=== PATIENT | female | born 1965 | race African-American/Black ===

== ENCOUNTER 2017-03-13 13:42 | Emergency (ER) | payer OTHER ==
[~2017-03-13] VITALS: Ht 157.5 cm; Wt 73.5 kg
[~2017-03-13 13:42] MED LIST: ALBU18HF IH; ATEN-51 PO; BEN50 PO; CETI-240 PO; HYD25 PO; LOSA100T47 PO; ONDA4TAB8 PO; PANT40TA3 PO; PRED20TA PO
[2017-03-13 13:43] VITALS: Ht 157.5 cm; Wt 73.5 kg
[2017-03-13] MEDS ORDERED: SULF1TAB31 PO (14:21)
[2017-03-13] MEDS ORDERED: HYDR26CR PR (14:22)
[2017-03-13] MEDS ORDERED: CEPH-443 PO (14:22)
--- NOTE | 2017-03-13 14:44 | ERD ---
ER Documentation Chief Complaint Date/Time DATE: 03/13/17 TIME: 14:39 Chief Complaint possible abscess on her buttucks HPI Patient is a 51-year-old female with a past medical history of hypertension who presents to the ED with pain and a bump on her left buttock. Denies fever or chills. States that this is been going on since yesterday. Denies pain when she walks. Denies abdominal pain, nausea, vomiting or diarrhea. Denies headache or dizziness. No other complaints. ROS All systems reviewed and are negative except as per history of present illness. Medications Home Meds Active Scripts Hydrocortisone* Rectal (Preparation H* Cream) 1% - 26 Gm Cream.gm., 1 APPLIC PA BID for 7 Days, TUB Prov:GLENIS DOTSON PA-C 03/13/17 Cephalexin* (Keflex*) 500 Mg Capsule, 500 MG PO QID for 7 Days, CAP Prov:GLENIS DOTSON-C 03/13/17 Sulfamethoxazole/Trimethoprim* (Bactrim Ds* Tablet) 1 Each Tablet, 1 TAB PO BID for 7 Days, #14 TAB Prov:GLENIS DOTSON PA-C 03/13/17 Prednisone* (Prednisone*) 20 Mg Tab, 60 MG PO DAILY for 3 Days, TAB Prov:HALEY NAVARRO NP 02/06/17 Diphenhydramine Hcl* (Benadryl*) 50 Mg Cap, 50 MG PO Q6H Y for ITCHING/RASH, # 30 CAP Prov:HALEY NAVARRO NP 02/06/17 Ondansetron Hcl* (Zofran*) 4 Mg Tablet, 4 MG PO Q6H for NAUSEA AND/OR VOMITING, #10 TAB Prov:GABBY ENNIS MD 12/18/15 Pantoprazole* (Protonix*) 40 Mg Tablet.dr, 40 MG PO DAILY, #10 TAB Prov:GABBY ENNIS MD 12/18/15 Reported Medications Cetirizine Hcl* (Cetirizine Hcl*) 10 Mg Tablet, 10 MG PO DAILY, #30 TAB 12/18/15 Losartan Potassium* (Cozaar*) 100 Mg Tablet, 100 MG PO DAILY, TAB 06/30/14 Hydrochlorothiazide* (Hydrochlorothiazide*) 25 Mg Tab, 25 MG PO DAILY, TAB 06/30/14 Atenolol* (Atenolol*) 25 Mg Tablet, 25 MG PO DAILY, TAB 06/30/14 Albuterol Sulfate* (Ventolin HFA*) 18 Gm Hfa.aer.ad, 2 PUFF IH Q4-6HOURS Y for WHEEZING AND RESP DISTRESS, EA 06/30/14 Allergies Allergies: Coded Allergies: No Known Allergy (Unverified , 12/18/15) PMhx/Soc History of Surgery: No Anesthesia Reaction: No Hx Neurological Disorder: No Hx Respiratory Disorders: Yes (ASTHMA) Hx Cardiac Disorders: Yes (HTN) Hx Psychiatric Problems: No Hx Miscellaneous Medical Probl: No Hx Alcohol Use: Yes (socially) Hx Substance Use: No Hx Tobacco Use: No Physical Exam Vitals Vital Signs Date Time Temp Pulse Resp B/P Pulse Ox O2 Delivery O2 Flow Rate FiO2 03/13/17 13:43 98.6 63 18 137/68 100 Physical Exam GENERAL: Well-developed, well-nourished female. Appears in no acute distress. HEAD: Normocephalic, atraumatic. EYES: Pupils are equally reactive bilaterally. EOMs grossly intact. No conjunctival erythema. ENT: Moist mucous membranes. No uvula deviation. No kissing tonsils. No exudates. NECK: Supple. No lymphadenopathy or thyromegaly. No meningismus. negative kernig. negative brudinski. LUNG: Clear to auscultation bilaterally. No rhonchi, wheezing, rales or coarse breath sounds. HEART: Regular rate and rhythm. No murmurs, rubs or gallops. BACK: No midline tenderness. 4 cm x 4 cm area of induration with no fluctuance. No warmth. Tenderness to touch Extremities: Equal pulses bilaterally. No peripheral clubbing, cyanosis or edema. No unilateral leg swelling. NEUROLOGIC: Alert and oriented. Moving all four extremities. 5/5 strength in all extremities. Normal speech. Steady gait. SKIN: Normal color. Warm and dry. No rashes or lesions. Capillary refill < 2 seconds Procedures/MDM ER COURSE: I kept the patient and/or family informed of laboratory and diagnostic imaging results throughout the emergency room course. MEDICAL DECISION MAKING: This is a 51-year-old female who presents with abscess on her left buttock 1 day. Vital signs were reviewed. Patient is afebrile. Patient is not hypoxic. Patient is nontoxic or ill-appearing. Abscess was indurated at this point no incision and drainage was done as there was no fluctuance. Patient was given Bactrim and Keflex and to do warm compresses 3-5 times a day. Patient to return in 2 days for check or earlier if symptoms worsen. Low suspicion for necrotizing fasciitis, SJS, toxic epidermal necrolysis, Kawasaki, erythema multiforme, gangrene, scarlet fever, meningococcemia, sepsis, anaphylaxis, sepsis, deep space infection, or foreign body. Patient also has hemorrhoids. Low suspicion for thrombosed hemorrhoid, prema-rectal or perianal abscess DISCHARGE: At this time, patient is stable for discharge and outpatient management with no new complaints during the ER course. Patient was sent home with Bactrim and Keflex and Anusol cream. Patient will be discharged home with instructions to recheck for new or worsening symptoms such as fever, nausea, weakness, LOC and to follow up with primary care in the next 1-2 days. Patient was advised to return to the ER for any new or worsening symptoms. Plan was discussed and patient and/or family understands and agrees. Home instructions were given. Departure Diagnosis: Primary Impression: Abscess Condition: Stable Patient Instructions: Abscess, Antiobiotic Treatment Only, Hemorrhoids Referrals: [facility] YOU HAVE RECEIVED A MEDICAL SCREENING EXAM AND THE RESULTS INDICATE THAT YOU DO NOT HAVE A CONDITION THAT REQUIRES URGENT TREATMENT IN THE EMERGENCY DEPARTMENT. FURTHER EVALUATION AND TREATMENT OF YOUR CONDITION CAN WAIT UNTIL YOU ARE SEEN IN YOUR DOCTORS OFFICE WITHIN THE NEXT 1-2 DAYS. IT IS YOUR RESPONSIBILITY TO MAKE AN APPOINTMENT FOR FOLOW-UP CARE. IF YOU HAVE A PRIMARY DOCTOR --you should call your primary doctor and schedule an appointment IF YOU DO NOT HAVE A PRIMARY DOCTOR YOU CAN CALL OUR PHYSICIAN REFERRAL HOTLINE AT IF YOU CAN NOT AFFORD TO SEE A PHYSICIAN YOU CAN CHOSE FROM THE FOLLOWING [facility] [address] [facility] [address] [facility] [address] [facility] [address] [facility]. [facility] [address] [facility] [facility] [address] Additional Instructions: Call your primary care doctor TOMORROW for an appointment during the next 1-2 days.See the doctor sooner or return here if your condition worsens before your appointment time. GLENIS DOTSON PA-C Mar 13, 2017 14:44
== END 2017-03-13 15:31 | disposition home or self-care (01) ==
LOC: FTE 13:42
DX: L02.31 Cutaneous abscess of buttock (principal); I10 Essential (primary) hypertension; J45.909 Unspecified asthma, uncomplicated
CPT/HCPCS: 99284

== ENCOUNTER 2017-03-16 08:41 | Emergency (ER) | payer OTHER ==
[~2017-03-16] VITALS: Wt 73.5 kg
[~2017-03-16 08:41] MED LIST changes: +CEPH-443 PO; +HYDR26CR PR; +SULF1TAB31 PO
[2017-03-16] MEDS ORDERED: LIDOCAINE 1% (MDV) 20 ML INJ SC ONE (09:30)
[2017-03-16] MEDS ORDERED: IBUP-1542 PO (09:53)
--- NOTE | 2017-03-16 11:32 | ERD ---
ER Documentation Chief Complaint Date/Time DATE: 03/16/17 TIME: 10:41 Chief Complaint abcess on left buttocks HPI 51-year-old female is complaining of painful abscess on her left buttocks. Patient was seen here 3 days ago for the same, was given oral antibiotics. Patient stated that the pain has gotten worse and it started draining yesterday. Denies fever or chills. ROS All systems reviewed and are negative except as per history of present illness. Medications Home Meds Active Scripts Ibuprofen* (Motrin*) 600 Mg Tab, 600 MG PO Q6H Y for PAIN AND OR ELEVATED TEMP, #30 TAB Prov:HALEY NAVARRO IN [employer] 03/16/17 Hydrocortisone* Rectal (Preparation H* Cream) 1% - 26 Gm Cream.gm., 1 APPLIC OR BID for 7 Days, TUB Prov:GLENIS DOTSON-C 03/13/17 Cephalexin* (Keflex*) 500 Mg Capsule, 500 MG PO QID for 7 Days, CAP Prov:GLENIS DOTSON-C 03/13/17 Sulfamethoxazole/Trimethoprim* (Bactrim Ds* Tablet) 1 Each Tablet, 1 TAB PO BID for 7 Days, #14 TAB Prov:GLENIS DOTSON-C 03/13/17 Prednisone* (Prednisone*) 20 Mg Tab, 60 MG PO DAILY for 3 Days, TAB Prov:HALEY NAVARRO NP 02/06/17 Diphenhydramine Hcl* (Benadryl*) 50 Mg Cap, 50 MG PO Q6H Y for ITCHING/RASH, # 30 CAP Prov:HALEY NAVARRO NP 02/06/17 Ondansetron Hcl* (Zofran*) 4 Mg Tablet, 4 MG PO Q6H for NAUSEA AND/OR VOMITING, #10 TAB Prov:GABBY ENNIS MD 12/18/15 Pantoprazole* (Protonix*) 40 Mg Tablet.dr, 40 MG PO DAILY, #10 TAB Prov:GABBY ENNIS MD 12/18/15 Reported Medications Cetirizine Hcl* (Cetirizine Hcl*) 10 Mg Tablet, 10 MG PO DAILY, #30 TAB 12/18/15 Losartan Potassium* (Cozaar*) 100 Mg Tablet, 100 MG PO DAILY, TAB 06/30/14 Hydrochlorothiazide* (Hydrochlorothiazide*) 25 Mg Tab, 25 MG PO DAILY, TAB 06/30/14 Atenolol* (Atenolol*) 25 Mg Tablet, 25 MG PO DAILY, TAB 06/30/14 Albuterol Sulfate* (Ventolin HFA*) 18 Gm Hfa.aer.ad, 2 PUFF IH Q4-6HOURS Y for WHEEZING AND RESP DISTRESS, EA 06/30/14 Allergies Allergies: Coded Allergies: No Known Allergy (Unverified , 12/18/15) PMhx/Soc Medical and Surgical Hx: pt denies Medical Hx History of Surgery: No Anesthesia Reaction: No Hx Neurological Disorder: No Hx Respiratory Disorders: No Hx Cardiac Disorders: No Hx Psychiatric Problems: No Hx Miscellaneous Medical Probl: No Hx Alcohol Use: No Hx Substance Use: No Hx Tobacco Use: No Smoking Status: Never smoker Physical Exam Vitals Vital Signs Date Time Temp Pulse Resp B/P Pulse Ox O2 Delivery O2 Flow Rate FiO2 03/16/17 08:45 97.9 68 17 132/61 98 Physical Exam General: Well-developed, well-nourished, conscious and coherent, in no distress Skin: Warm and dry without rash, good texture and turgor. A 2 cm erythematous and indurated area noted on the left buttock, tender to palpation, with mild drainage from the center Head: Normocephalic without evidence of trauma Eyes: Sclera and conjunctivae normal; pupils equal, round, and reactive to light; extraocular movements are intact Neck: Supple without meningismus or adenopathy. Carotids are equal. Trachea midline. No bruits or JVD Chest: Normal AP diameter. Good expansion without retractions. Nontender. Lungs are clear to auscultate bilaterally with good tidal volume Heart: Regular rate and rhythm. No murmur, rub, or gallops heard Abdomen: Soft and nontender without masses, guarding, or rebound. Bowel sounds are active. No hepatosplenomegaly Back: Without spinal or CVA tenderness Extremities: Full range of motion. Good strength bilaterally. No clubbing, cyanosis, or edema. Peripheral pulses are intact. Sensation intact Neuro: Alert and oriented 4, GCS 15. Cranial nerves grossly intact. Motor and sensory exams nonfocal. Moves all extremities. Speech clear. Gait normal Results 24 hrs Current Medications Medications (Trade) Dose Ordered Sig/Buzz Route PRN Reason Start Time Stop Time Status Last Admin Dose Admin Lidocaine (Xylocaine 1% (Mdv) 20 ml) 20 ml ONCE ONCE SC 03/16/17 09:30 03/16/17 09:31 DC Procedures/MDM Procedure note: Incision and Drainage Verbal consent obtained for incision and drainage of patient's abscess. The area was prepped with Betadine. Lidocaine 1% was infiltrated for local anesthesia. After appropriate anesthesia, incision was made using #11 blade. Moderate amount of purulent discharge was drained from the abscess. The abscess was probed for loculation. Iodoform 1/4" packing tape was inserted into the abscess. The wound was then cleaned and dressed. Patient tolerated procedure well. Patient is advised to continue to take antibiotics until finished, and return to ED in 2 days for wound check and dressing change. I doubt necrotizing fasciitis. Departure Diagnosis: Primary Impression: Abscess Condition: Good Patient Instructions: Abscess, Incision And Drainage Referrals: [facility] (PCP) Additional Instructions: Return to this facility in 2 DAYS for a follow-up exam.Return sooner if your condition worsens. HALEY NAVARRO NP Mar 16, 2017 10:52
== END 2017-03-16 10:09 | disposition home or self-care (01) ==
LOC: FTE 08:41
DX: L02.31 Cutaneous abscess of buttock (principal); R40.2412 Glasgow coma scale score 13-15, at arrival to emergency department
CPT/HCPCS: 10061; Z7610

== ENCOUNTER 2017-03-18 08:56 | Emergency (ER) | payer OTHER ==
[~2017-03-18] VITALS: Ht 157.5 cm; Wt 72.5 kg
[~2017-03-18 08:56] MED LIST changes: +IBUP-1542 PO
[2017-03-18 08:58] VITALS: Ht 157.5 cm; Wt 72.5 kg
[2017-03-18] MEDS ORDERED: HYDR-906 PO (10:01)
--- NOTE | 2017-03-18 10:08 | ERD ---
ER Documentation Chief Complaint Date/Time DATE: 03/18/17 TIME: 10:05 Chief Complaint 2 DAY WOUND, ABSCESS DRAINED PACKING IN PLACE HPI This a 51-year-old female who presents the emergency department today for a wound check of an abscess that she had drained a couple of days ago on her left buttock. Patient states she has had some nausea. Denies any fevers or chills. States she is taking her antibiotics as prescribed. States that she has had some increased pain at night. States she is taking Motrin for pain. ROS All systems reviewed and are negative except as per history of present illness. Medications Home Meds Active Scripts Hydrocodone/Acetaminophen (Mason 5-325 Tablet) 1 Each Tablet, 1 TAB PO Q6H Y for PAIN, #10 TAB Prov:HIRAL MUHAMMAD PA-C 03/18/17 Ibuprofen* (Motrin*) 600 Mg Tab, 600 MG PO Q6H Y for PAIN AND OR ELEVATED TEMP, #30 TAB Prov:HALEY NAVARRO NP 03/16/17 Hydrocortisone* Rectal (Preparation H* Cream) 1% - 26 Gm Cream.gm., 1 APPLIC PA BID for 7 Days, TUB Prov:GLENIS DOTSON PA-C 03/13/17 Cephalexin* (Keflex*) 500 Mg Capsule, 500 MG PO QID for 7 Days, CAP Prov:GLENIS DOTSON PA-C 03/13/17 Sulfamethoxazole/Trimethoprim* (Bactrim Ds* Tablet) 1 Each Tablet, 1 TAB PO BID for 7 Days, #14 TAB Prov:GLENIS DOTSON PA-C 03/13/17 Prednisone* (Prednisone*) 20 Mg Tab, 60 MG PO DAILY for 3 Days, TAB Prov:HALEY NAVARRO NP 02/06/17 Diphenhydramine Hcl* (Benadryl*) 50 Mg Cap, 50 MG PO Q6H Y for ITCHING/RASH, # 30 CAP Prov:HALEY NAVARRO NP 02/06/17 Ondansetron Hcl* (Zofran*) 4 Mg Tablet, 4 MG PO Q6H for NAUSEA AND/OR VOMITING, #10 TAB Prov:GABBY ENNIS MD 12/18/15 Pantoprazole* (Protonix*) 40 Mg Tablet.dr, 40 MG PO DAILY, #10 TAB Prov:GABBY ENNIS MD 12/18/15 Reported Medications Cetirizine Hcl* (Cetirizine Hcl*) 10 Mg Tablet, 10 MG PO DAILY, #30 TAB 12/18/15 Losartan Potassium* (Cozaar*) 100 Mg Tablet, 100 MG PO DAILY, TAB 06/30/14 Hydrochlorothiazide* (Hydrochlorothiazide*) 25 Mg Tab, 25 MG PO DAILY, TAB 06/30/14 Atenolol* (Atenolol*) 25 Mg Tablet, 25 MG PO DAILY, TAB 06/30/14 Albuterol Sulfate* (Ventolin HFA*) 18 Gm Hfa.aer.ad, 2 PUFF IH Q4-6HOURS Y for WHEEZING AND RESP DISTRESS, EA 06/30/14 Allergies Allergies: Coded Allergies: No Known Allergy (Unverified , 03/18/17) PMhx/Soc History of Surgery: No Anesthesia Reaction: No Hx Neurological Disorder: No Hx Respiratory Disorders: No Hx Cardiac Disorders: No Hx Psychiatric Problems: No Hx Miscellaneous Medical Probl: No Hx Alcohol Use: No Hx Substance Use: No Hx Tobacco Use: No Physical Exam Vitals Vital Signs Date Time Temp Pulse Resp B/P Pulse Ox O2 Delivery O2 Flow Rate FiO2 03/18/17 08:58 97.9 53 18 146/70 97 Physical Exam Const: No acute distress Head: Atraumatic Eyes: Normal Conjunctiva ENT: Normal External Ears, Nose and Mouth. Neck: Full range of motion..~ No meningismus. Resp: Clear to auscultation bilaterally Cardio: Regular rate and rhythm, no murmurs Skin: Evidence of drained abscess left buttock. No erythema or warmth. No purulent drainage. No evidence of wound packing. Neur: Awake and alert Psych: Normal Mood and Affect Procedures/MDM This 51-year-old female presents the emergency department today for a wound check of an abscess that she had drained 2 days ago. Upon review of patient's medical records she did have some packing placed however there is no evidence of packing at this time and my suspicion is that the packing has fallen out as patient was doing dressing changes on her own. She is afebrile and otherwise well-appearing. There is no purulent drainage. Wound appears to be healing well. Low suspicion for sepsis, deep space tracking infection, severe cellulitis. Patient was instructed to continue taking her antibiotics as prescribed. I did give her a short course of Mason for home as she had increased pain at night. She was instructed to stay out of the water in her swimming class and keep the wound clean and dry. Patient understood. Wound was redressed here in the emergency department. At this time the patient is stable for discharge and outpatient management. Patient should follow up with their PCP in the next 1-2 days. They may return to the emergency department sooner for any persistent or worsening of symptoms. Patient understood and agreed with the plan. Departure Diagnosis: Primary Impression: Encounter for wound re-check Condition: Fair Patient Instructions: Wound Care Referrals: [facility] (PCP) Additional Instructions: Call your primary care doctor TOMORROW for an appointment during the next 1-2 days.See the doctor sooner or return here if your condition worsens before your appointment time. Continue taking antibiotics as prescribed Take Mason for severe pain otherwise take Naprosyn or Tylenol or Motrin Keep wound clean HIRAL MUHAMMAD PA-C Mar 18, 2017 10:08
== END 2017-03-18 10:30 | disposition home or self-care (01) ==
LOC: E/R 08:56
DX: Z48.01 Encounter for change or removal of surgical wound dressing (principal)
CPT/HCPCS: 99283

== ENCOUNTER 2017-10-26 17:43 | Emergency (ER) | END 2017-10-26 23:46 | disposition home or self-care (01) ==

== ENCOUNTER 2017-10-28 07:59 | Emergency (ER) | END 2017-10-28 09:23 | disposition home or self-care (01) ==

== ENCOUNTER 2017-11-30 19:04 | Emergency (ER) | END 2017-11-30 21:12 | disposition home or self-care (01) ==

== ENCOUNTER 2017-12-04 10:17 | Emergency (ER) | END 2017-12-04 12:38 | disposition home or self-care (01) ==

== ENCOUNTER 2018-10-06 13:50 | Emergency (ER) | payer OTHER ==
[~2018-10-06] VITALS: Ht 165.1 cm; Wt 76.4 kg
[~2018-10-06 13:50] MED LIST changes: -CETI-240 PO; +CETI10TA19 PO; +FLUC150T PO; -HYD25 PO; +HYDR-4011 PO; +HYDR25TA6 PO; +IBUP-1561 PO; +IBUP800T48 PO; +LOSA100T3 PO; -LOSA100T47 PO; +MELO15TA30 PO; +MUPI22OI2 TOP
[2018-10-06 14:03] VITALS: Ht 165.1 cm; Wt 76.4 kg
[2018-10-06] MEDS ORDERED: KETOROLAC 15 MG INJ IV STA (14:41)
--- NOTE | 2018-10-06 14:45 | ERD ---
ER Documentation Chief Complaint Chief Complaint rt hand pain seen here before, medication not working HPI 52-year-old female, right-handed, returns to the emergency department 24 hours after being seen for right pain. The patient is complaining of worsening of symptoms, at this time, associated with edema, erythema and warmth over the dorsum of the right hand. She was discharged on cephalexin and ibuprofen, she refers good compliance with medications without improvement of the symptoms. Denies fevers, no chills, no rashes, no history of previous episodes. ROS All systems reviewed and are negative except as per history of present illness. Medications Home Meds Active Scripts Hydrocodone/Acetaminophen ([place] 5-325 Tablet) 1 Each Tablet, 1 TAB PO QHS PRN for PAIN, #7 TAB Prov:CHEIKH HOFFMANN MD 10/06/18 Prednisone* (Prednisone*) 20 Mg Tab, 40 MG PO DAILY for 4 Days, TAB Prov:CHEIKH HOFFMANN MD 10/06/18 Sulfamethoxazole/Trimethoprim* (Bactrim Ds* Tablet) 1 Each Tablet, 1 TAB PO BID, #14 TAB Prov:CHEIKH HOFFMANN MD 10/06/18 Ibuprofen* (Motrin*) 800 Mg Tab, 800 MG PO Q6H PRN for PAIN AND OR ELEVATED TEMP, #30 TAB Prov:JASKARAN MELCHOR 10/05/18 Meloxicam* (Mobic*) 15 Mg Tablet, 15 MG PO DAILY PRN for PAIN LEVEL 1-5, #30 TAB Prov:JASKARAN MELCHOR 10/05/18 Cephalexin* (Keflex*) 500 Mg Capsule, 500 MG PO TID for 7 Days, CAP Prov:HUNTERILAJASKARAN MENDIOLA 10/05/18 Hydrocodone/Acetaminophen ([place] 5-325 Tablet) 1 Each Tablet, 1 TAB PO Q6H PRN for PAIN, #7 TAB Prov:SHELBY GRACE PA-C 12/04/17 Fluconazole* (Diflucan*) 150 Mg Tablet, 150 MG PO ONCE, #1 TAB Prov:CHEIKH HOFFMANN MD 11/30/17 Sulfamethoxazole/Trimethoprim* (Bactrim Ds* Tablet) 1 Each Tablet, 1 TAB PO BID, #14 TAB Prov:CHEIKH HOFFMANN MD 11/30/17 Mupirocin* (Bactroban*) 2% -22 Gram Oint...g., 1 APPLIC TOP BID for 7 Days, EA Prov:CHEIKH HOFFMANN MD 11/30/17 Hydrocodone/Acetaminophen ([place] 5-325 Tablet) 1 Each Tablet, 1 TAB PO Q6H PRN for PAIN, #12 TAB Prov:CHEIKH HOFFMANN MD 10/26/17 Ibuprofen* (Motrin*) 400 Mg Tab, 400 MG PO Q8 for 4 Days, #12 TAB Prov:CHEIKH HOFFMANN MD 10/26/17 Cephalexin* (Keflex*) 500 Mg Capsule, 500 MG PO BID for 7 Days, CAP Prov:CHEIKH HOFFMANN MD 10/26/17 Sulfamethoxazole/Trimethoprim* (Bactrim Ds* Tablet) 1 Each Tablet, 1 TAB PO BID, #14 TAB Prov:CHEIKH HOFFMANN MD 10/26/17 Hydrocodone/Acetaminophen ([place] 5-325 Tablet) 1 Each Tablet, 1 TAB PO Q6H PRN for PAIN, #10 TAB Prov:HIRAL MUHAMMAD-C 03/18/17 Ibuprofen* (Motrin*) 600 Mg Tab, 600 MG PO Q6H PRN for PAIN AND OR ELEVATED TEMP, #30 TAB Prov:HALEY NAVARRO [employer] 03/16/17 Hydrocortisone* Rectal (Preparation H* Cream) 1% - 26 Gm Cream.gm., 1 APPLIC [place] BID for 7 Days, TUB Prov:GLENIS DOTSON-C 03/13/17 Cephalexin* (Keflex*) 500 Mg Capsule, 500 MG PO QID for 7 Days, CAP Prov:HYUNTARIGLENIS LANDEROS PA-C 03/13/17 Sulfamethoxazole/Trimethoprim* (Bactrim Ds* Tablet) 1 Each Tablet, 1 TAB PO BID for 7 Days, #14 TAB Prov:GLENIS DOTSON PA-C 03/13/17 Prednisone* (Prednisone*) 20 Mg Tab, 60 MG PO DAILY for 3 Days, TAB Prov:HALEY NAVARRO. [employer] 02/06/17 Diphenhydramine Hcl* (Benadryl*) 50 Mg Cap, 50 MG PO Q6H PRN for ITCHING/RASH, #30 CAP Prov:HALEY NAVARRO NP 02/06/17 Ondansetron Hcl* (Zofran*) 4 Mg Tablet, 4 MG PO Q6H for NAUSEA AND/OR VOMITING, #10 TAB Prov:GABBY ENNIS MD 12/18/15 Pantoprazole* (Protonix*) 40 Mg Tablet.dr, 40 MG PO DAILY, #10 TAB Prov:GABBY ENNIS MD 12/18/15 Reported Medications Cetirizine Hcl* (Cetirizine Hcl*) 10 Mg Tablet, 10 MG PO DAILY, #30 TAB 12/18/15 Losartan Potassium* (Cozaar*) 100 Mg Tablet, 100 MG PO DAILY, TAB 06/30/14 Hydrochlorothiazide* (Hydrochlorothiazide*) 25 Mg Tab, 25 MG PO DAILY, TAB 06/30/14 Atenolol* (Atenolol*) 25 Mg Tablet, 25 MG PO DAILY, TAB 06/30/14 Albuterol Sulfate* (Ventolin HFA*) 18 Gm Hfa.aer.ad, 2 PUFF IH Q4-6HOURS PRN for WHEEZING AND RESP DISTRESS, EA 06/30/14 Discontinued Scripts Ibuprofen* (Motrin*) 800 Mg Tab, 800 MG PO Q6H PRN for PAIN AND OR ELEVATED TEMP, #30 TAB Prov:CHERRIMARLENAMARIGUILLERMO Avina 10/05/18 Allergies Allergies: Coded Allergies: No Known Allergy (Unverified , 03/18/17) PMhx/Soc History of Surgery: No Anesthesia Reaction: No Hx Neurological Disorder: No Hx Respiratory Disorders: No Hx Cardiac Disorders: No Hx Psychiatric Problems: No Hx Miscellaneous Medical Probl: No Hx Alcohol Use: No Hx Substance Use: No Hx Tobacco Use: No Smoking Status: Never smoker Physical Exam Vitals Vital Signs Date Temp Pulse Resp B/P (MAP) Pulse Ox O2 O2 Flow FiO2 Time Delivery Rate 10/06/18 99.1 66 18 139/62 98 Room Air 18:16 (87) 10/06/18 98.3 82 18 185/76 97 14:03 (112) Physical Exam Const: No acute distress Head: Atraumatic Eyes: Normal Conjunctiva ENT: Normal External Ears, Nose and Mouth. Neck: Full range of motion. No meningismus. Resp: Clear to auscultation bilaterally Cardio: Regular rate and rhythm, no murmurs Abd: Soft, non tender, non distended. Normal bowel sounds Skin: No petechiae or rashes Back: No midline or flank tenderness Ext: Right hand: 6 x 6 cm well-defined area of edema, erythema and tenderness over the dorsum of the hand, predominantly at the first and second metacarpal areas. Distal neurovascular exam intact. Neur: Awake and alert Psych: Normal Mood and Affect Result Diagram: 10/06/18 1458 10/06/18 1457 Results 24 hrs Laboratory Tests Test 10/06/18 14:55 10/06/18 14:57 10/06/18 14:58 Bedside Urine pH (LAB) 6.0 Bedside Urine Protein (LAB) Negative Bedside Urine Glucose (UA) Negative Bedside Urine Ketones (LAB) Negative Bedside Urine Blood Trace-intact Bedside Urine Nitrite (LAB) Negative Bedside Urine Leukocyte Esterase 1+ (L Sodium Level 139 mmol/L Potassium Level 3.9 mmol/L Chloride Level 100 mmol/L Carbon Dioxide Level 30 mmol/L Anion Gap 9 Blood Urea Nitrogen 12 mg/dl Creatinine 0.65 mg/dl Est Glomerular Filtrat Rate mL/min > 60 mL/min Glucose Level 109 mg/dl Calcium Level 10.4 mg/dl POC Beta HCG, Qualitative NEGATIVE White Blood Count 8.3 10^3/ul Red Blood Count 5.12 10^6/ul Hemoglobin 13.7 g/dl Hematocrit 42.0 % Mean Corpuscular Volume 82.0 fl Mean Corpuscular Hemoglobin 26.8 pg Mean Corpuscular 32.6 g/dl Hemoglobin Concent Red Cell Distribution Width 13.6 % Platelet Count 199 10^3/UL Mean Platelet Volume 11.2 fl Immature Granulocytes % 0.100 % Neutrophils % 67.0 % Lymphocytes % 20.6 % Monocytes % 10.1 % Eosinophils % 1.8 % Basophils % 0.4 % Nucleated Red Blood Cells % 0.0 /100WBC Immature Granulocytes # 0.010 10^3/ul Neutrophils # 5.6 10^3/ul Lymphocytes # 1.7 10^3/ul Monocytes # 0.8 10^3/ul Eosinophils # 0.2 10^3/ul Basophils # 0.0 10^3/ul Nucleated Red Blood Cells # 0.0 10^3/ul Current Medications Medications Dose Sig/Buzz Start Time Status Last (Trade) Ordered Route PRN Stop Time Admin Dose Reason Admin Sodium 1,000 ml @ Q1H ONCE 10/06/18 DC 10/06/18 Chloride 1,000 mls/hr IV 15:00 15:04 10/06/18 15:59 Ertapenem 1 100 ml @ ONCE ONCE 10/06/18 DC 10/06/18 gm/ Sodium 200 mls/hr IVPB 15:00 15:03 Chloride 10/06/18 15:29 8 mg ONCE ONCE 10/06/18 DC 10/06/18 Dexamethasone IV 15:00 15:03 (Decadron) 10/06/18 15:01 Ketorolac 15 mg ONCE STAT 10/06/18 DC 10/06/18 Tromethamine IV 14:41 15:04 (Toradol) 10/06/18 14:47 DIAGNOSTIC IMAGING REPORT Patient: AILYN GARCIA : 1965 Age: 52 Sex: F MR #: [id number] DOS: 10/06/18 1441 Ordering MD: CHEIKH HOFFMANN MD Location: [facility] Room/Bed: PROCEDURE: XR Hand. CLINICAL INDICATION: f/u Rt hand cellulitis TECHNIQUE: AP oblique and lateral views of the right hand were obtained. COMPARISON: HAND 10/05/2018; [facility] HAND 09/07/2014 FINDINGS: No acute fracture detected. No dislocation. No erosive changes or periosteal reaction. Mild arthrosis at the thumb base. Interval increase in now moderate soft tissue swelling. IMPRESSION: Increased soft tissue swelling without evidence of fracture or osteomyelitis. RPTAT:AAJJ Physician Merari Date Time Electronically viewed and signed by Physician Merari on 10/06/2018 15:43 RF/ CC: CHEIKH HOFFMANN MD [phone] Procedures/MDM Vital signs stable, differential diagnosis include but not limited to: DVT, superficial thrombosis, cellulitis, erysipelas, shingles, abscess. Low suspicion for acute systemic infectious process. Physical examination and clinical presentation consistent most likely with cellulitis of the right hand without evidence of abscess formation. During the ED course the patient remained stable, no new complaints. The patient received treatment with IV Invanz, steroids and Toradol. Results and clinical impression discussed with the patient who agrees with management. The patient is stable to be treated outpatient and will be discharged home with a Rx for antibiotics, anti-inflammatories and pain medica tions, some side effects of prescribed medications (headache, rash, nausea, vomiting, diarrhea, drowsiness, habituation, bleeding, hypertension, interactions with other medications) were reviewed. The patient was instructed to follow up with the primary care provider in the next 48h. If symptoms persist, worsen or new symptoms develop, then patient should return to the ED immediately. Instructions explained and given directly by me to the patient and relatives with acknowledgment and demonstrated understanding. Disclaimer: Inadvertent spelling and grammatical errors are likely due to EHR/d ictation software use and do not reflect on the overall quality of patient care. Also, please note that the electronic time recorded on this note does not necessarily reflect the actual time of the patient encounter. Departure Diagnosis: Primary Impression: Cellulitis of hand, right Condition: Stable Additional Instructions: Thank you very much for allowing us to participate in your care. Your health and safety is our top priority at [facility]. Call your primary care doctor TOMORROW for an appointment during the next 2-4 days and bring all the information and medications prescribed. Have prescriptions filled and follow precisely the directions on the label. If the symptoms get worse and your provider is unavailable, return to the Emergency Department immediately. CHEIKH HOFFMANN MD Oct 06, 2018 14:45
[2018-10-06] MEDS ORDERED: SOD CHLORIDE 0.9% 1,000 ML IV ONE (15:00)
[2018-10-06] MEDS ORDERED: DEXAMETHASONE 10 MG/ML 1 ML INJ IV ONE (15:00)
[2018-10-06] MEDS ORDERED: ERTAPENEM SODIUM 1 GM in SOD CHLORIDE 0.9% 100 ML IVPB ONE (15:00)
[2018-10-06] MEDS ORDERED: PRED20TA PO (17:52)
[2018-10-06] MEDS ORDERED: SULF1TAB31 PO (17:52)
[2018-10-06] MEDS ORDERED: HYDR-4011 PO (17:53)
[2018-10-06 18:16] VITALS: BP 139/62; PULSE 66; RESP 18
== END 2018-10-06 18:18 | disposition home or self-care (01) ==
LOC: FTE 13:50
DX: L03.113 Cellulitis of right upper limb (principal)
CPT/HCPCS: 73130; 80048; 81003; 81025; 85025; 96374; 96375; J1100; J1335; J1885; Z7502; Z7610

== ENCOUNTER 2018-10-09 09:27 | Emergency (ER) | payer OTHER ==
[~2018-10-09] VITALS: Wt 77.2 kg
--- NOTE | 2018-10-09 10:35 | ERD ---
ER Documentation Chief Complaint Chief Complaint HERE FOR F/U RIGHT HADN SWELLING, HERE ON 52-year-old y/o female, returns to the emergency department for follow-up of the right hand cellulitis. Patient feels better, persist with well localized edema but the erythema, warmth and tenderness have improved, refers good compliance with medications, no side effects. She denies fevers, no chills. ROS All systems reviewed and are negative except as per history of present illness. Medications Home Meds Active Scripts Acetaminophen* (Tylenol*) 325 Mg Tablet, 2 TAB PO Q8 PRN for PAIN AND OR ELEVATED TEMP, #20 TAB Prov:CHEIKH HOFFMANN MD 10/09/18 Ranitidine Hcl* (Zantac*) 150 Mg Tablet, 150 MG PO BID PRN for EPIGASTRIC PAIN, #14 TAB Prov:CHEIKH HOFFMANN MD 10/09/18 Hydrocodone/Acetaminophen ([place] 5-325 Tablet) 1 Each Tablet, 1 TAB PO QHS PRN for PAIN, #7 TAB Prov:CHEIKH HOFFMANN MD 10/06/18 Prednisone* (Prednisone*) 20 Mg Tab, 40 MG PO DAILY for 4 Days, TAB Prov:CHEIKH HOFFMANN MD 10/06/18 Sulfamethoxazole/Trimethoprim* (Bactrim Ds* Tablet) 1 Each Tablet, 1 TAB PO BID, #14 TAB Prov:CHEIKH HOFFMANN MD 10/06/18 Ibuprofen* (Motrin*) 800 Mg Tab, 800 MG PO Q6H PRN for PAIN AND OR ELEVATED TEMP, #30 TAB Prov:JASKARAN MELCHOR 10/05/18 Meloxicam* (Mobic*) 15 Mg Tablet, 15 MG PO DAILY PRN for PAIN LEVEL 1-5, #30 TAB Prov:JASKARAN MELCHOR 10/05/18 Cephalexin* (Keflex*) 500 Mg Capsule, 500 MG PO TID for 7 Days, CAP Prov:JASKARAN MELCHOR 10/05/18 Hydrocodone/Acetaminophen ([place] 5-325 Tablet) 1 Each Tablet, 1 TAB PO Q6H PRN for PAIN, #7 TAB Prov:SHELBY GRACE PA-C 12/04/17 Fluconazole* (Diflucan*) 150 Mg Tablet, 150 MG PO ONCE, #1 TAB Prov:CHEIKH HOFFMANN MD 11/30/17 Sulfamethoxazole/Trimethoprim* (Bactrim Ds* Tablet) 1 Each Tablet, 1 TAB PO BID, #14 TAB Prov:CHEIKH HOFFMANN MD 11/30/17 Mupirocin* (Bactroban*) 2% -22 Gram Oint...g., 1 APPLIC TOP BID for 7 Days, EA Prov:CHEIKH HOFFMANN MD 11/30/17 Hydrocodone/Acetaminophen ([place] 5-325 Tablet) 1 Each Tablet, 1 TAB PO Q6H PRN for PAIN, #12 TAB Prov:CHEIKH HOFFMANN MD 10/26/17 Ibuprofen* (Motrin*) 400 Mg Tab, 400 MG PO Q8 for 4 Days, #12 TAB Prov:CHEIKH HOFFMANN MD 10/26/17 Cephalexin* (Keflex*) 500 Mg Capsule, 500 MG PO BID for 7 Days, CAP Prov:CHEIKH HOFFMANN MD 10/26/17 Sulfamethoxazole/Trimethoprim* (Bactrim Ds* Tablet) 1 Each Tablet, 1 TAB PO BID, #14 TAB Prov:CHEIKH HOFFMANN MD 10/26/17 Hydrocodone/Acetaminophen ([place] 5-325 Tablet) 1 Each Tablet, 1 TAB PO Q6H PRN for PAIN, #10 TAB Prov:HIRAL MUHAMMAD PA-C 03/18/17 Ibuprofen* (Motrin*) 600 Mg Tab, 600 MG PO Q6H PRN for PAIN AND OR ELEVATED TEMP, #30 TAB Prov:HALEY NAVARRO NP 03/16/17 Hydrocortisone* Rectal (Preparation H* Cream) 1% - 26 Gm Cream.gm., 1 APPLIC [place] BID for 7 Days, TUB Prov:GLENIS DOTSON PA-C 03/13/17 Cephalexin* (Keflex*) 500 Mg Capsule, 500 MG PO QID for 7 Days, CAP Prov:GLENIS DOTSON-C 03/13/17 Sulfamethoxazole/Trimethoprim* (Bactrim Ds* Tablet) 1 Each Tablet, 1 TAB PO BID for 7 Days, #14 TAB Prov:GLENIS DOTSON PA-C 03/13/17 Prednisone* (Prednisone*) 20 Mg Tab, 60 MG PO DAILY for 3 Days, TAB Prov:HALEY NAVARRO [employer] 02/06/17 Diphenhydramine Hcl* (Benadryl*) 50 Mg Cap, 50 MG PO Q6H PRN for ITCHING/RASH, #30 CAP Prov:HALEY NAVARRO. [employer] 02/06/17 Ondansetron Hcl* (Zofran*) 4 Mg Tablet, 4 MG PO Q6H for NAUSEA AND/OR VOMITING, #10 TAB Prov:GABBY ENNIS MD 12/18/15 Pantoprazole* (Protonix*) 40 Mg Tablet.dr, 40 MG PO DAILY, #10 TAB Prov:GABBY ENNIS MD 12/18/15 Reported Medications Cetirizine Hcl* (Cetirizine Hcl*) 10 Mg Tablet, 10 MG PO DAILY, #30 TAB 12/18/15 Losartan Potassium* (Cozaar*) 100 Mg Tablet, 100 MG PO DAILY, TAB 06/30/14 Hydrochlorothiazide* (Hydrochlorothiazide*) 25 Mg Tab, 25 MG PO DAILY, TAB 06/30/14 Atenolol* (Atenolol*) 25 Mg Tablet, 25 MG PO DAILY, TAB 06/30/14 Albuterol Sulfate* (Ventolin HFA*) 18 Gm Hfa.aer.ad, 2 PUFF IH Q4-6HOURS PRN for WHEEZING AND RESP DISTRESS, EA 06/30/14 Discontinued Scripts Ibuprofen* (Motrin*) 800 Mg Tab, 800 MG PO Q6H PRN for PAIN AND OR ELEVATED TEMP, #30 TAB Prov:JASKARAN MELCHOR 10/05/18 Allergies Allergies: Coded Allergies: No Known Allergy (Unverified , 10/09/18) PMhx/Soc Medical and Surgical Hx: pt denies Medical Hx, pt denies Surgical Hx History of Surgery: No Anesthesia Reaction: No Hx Neurological Disorder: No Hx Respiratory Disorders: No Hx Cardiac Disorders: No Hx Psychiatric Problems: No Hx Miscellaneous Medical Probl: No Hx Alcohol Use: No Hx Substance Use: No Hx Tobacco Use: No Smoking Status: Never smoker FmHx Family History: No diabetes, No coronary disease Physical Exam Vitals Vital Signs Date Temp Pulse Resp B/P (MAP) Pulse Ox O2 O2 Flow FiO2 Time Delivery Rate 10/09/18 62 18 147/74 100 Room Air 12:46 (98) 10/09/18 97.8 57 18 147/90 99 09:30 (109) Physical Exam Const: No acute distress Head: Atraumatic Eyes: Normal Conjunctiva ENT: Normal External Ears, Nose and Mouth. Neck: Full range of motion. No meningismus. Resp: Clear to auscultation bilaterally Cardio: Regular rate and rhythm, no murmurs Abd: Soft, non tender, non distended. Normal bowel sounds Skin: No petechiae or rashes Back: No midline or flank tenderness Ext: Right hand: Dorsal area of fluctuance but no erythema neither warmth to palpation. Distal neurovascular exam intact. Neur: Awake and alert Psych: Normal Mood and Affect Results 24 hrs Current Medications Medications Dose Sig/Buzz Start Time Status Last (Trade) Ordered Route PRN Stop Time Admin Dose Reason Admin 8 mg ONCE ONCE 10/09/18 DC 10/09/18 Dexamethasone IV 11:00 11:20 (Decadron) 10/09/18 11:01 Ketorolac 15 mg ONCE STAT 10/09/18 DC 10/09/18 Tromethamine IV 10:47 11:20 (Toradol) 10/09/18 10:49 Lidocaine 5 ml ONCE ONCE 10/09/18 DC (Xylocaine INJ 12:00 1% (Mpf)) 10/09/18 12:01 Procedures/MDM Vital signs stable, differential diagnosis include but not limited to: Ganglion cyst, cellulitis, erysipelas, abscess. Low suspicion for acute systemic infectious process. Physical examination and clinical presentation consistent most likely with improved cellulitis of the right head, which, most likely was caused by a ruptured ganglion cyst. During the ED course the patient remained stable, no new complaints. Since the infection and the acute inflammatory process has been controlled, will proceed with aspiration of the cyst, patient agreed with procedure. Procedure: Ganglion cyst aspiration Location: Right right dorsal hand Indication: Pain and inflammation Anesthesia: Local, 1 cc of lidocaine 1% without epi Skin prepared with chlorhexidine. 18-gauge needle was directed lateral to the ganglion obtaining approximately 3 cc of clear fluid. Patient tolerated well the procedure, no complications. Results and clinical impression discussed with the patient who agrees with management. The patient is stable to be treated outpatient and will be discharged home . The patient was instructed to follow up with the primary care provider in the next 48h. If symptoms persist, worsen or new symptoms develop, then patient should return to the ED immediately. Instructions explained and given directly by me to the patient and relatives with acknowledgment and demonstrated understanding. Disclaimer: Inadvertent spelling and grammatical errors are likely due to EHR/dictation software use and do not reflect on the overall quality of patient care. Also, please note that the electronic time recorded on this note does not necessarily reflect the actual time of the patient encounter. Departure Diagnosis: Primary Impression: Ganglion cyst Additional Impression: Cellulitis of right hand Condition: Stable Additional Instructions: Thank you very much for allowing us to participate in your care. Your health and safety is our top priority at [facility]. Call your primary care doctor TOMORROW for an appointment during the next 2-4 days and bring all the information and medications prescribed. Have prescriptions filled and follow precisely the directions on the label. If the symptoms get worse and your provider is unavailable, return to the Emergency Department immediately. CHEIKH HOFFMANN MD Oct 09, 2018 10:35
[2018-10-09] MEDS ORDERED: KETOROLAC 15 MG INJ IV STA (10:47)
[2018-10-09] MEDS ORDERED: DEXAMETHASONE 10 MG/ML 1 ML INJ IV ONE (11:00)
[2018-10-09] MEDS ORDERED: LIDOCAINE 1% (MPF) 5 ML VIAL INJ ONE (12:00)
[2018-10-09] MEDS ORDERED: RANI150T35 PO (12:34)
[2018-10-09] MEDS ORDERED: ACET325T33 PO (12:35)
[2018-10-09 12:46] VITALS: BP 147/74; PULSE 62; RESP 18
== END 2018-10-09 12:48 | disposition home or self-care (01) ==
LOC: FTE 09:27
DX: M67.441 Ganglion, right hand (principal); L03.113 Cellulitis of right upper limb
CPT/HCPCS: 20612; 96374; 96375; J1100; J1885; Z7502; Z7610